=== PATIENT | female | born 2005 | race Two or more races ===

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

== ENCOUNTER 2024-06-01 13:59 | Outpatient (AMB) | payer OTHER, SELFPAY ==
--- NOTE | 2024-06-01 14:03 | A.OFFPC_ITS ---
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 Note: new patient to establish care Wrapper Leaf Inspector Required: No Allergies No Known Allergies Allergy (Verified 06/01/24 14:05) Tobacco use date assessed: 06/01/24 Dental Screening Dental Screen Date: 06/01/24 Did you have a dental visit in the last 12 months?: No Did you have a dental problem in the last 6 months where you did not have access to dental care?: No Was dental information given to patient?: Patient has dentist HPI HPI Comments History of Present Illness Details This is a 18-year-old female with no significant past medical history presenting to establish [facility]. She needs a physical exam. 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 It is a str essful program. 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 She has a step sibling and 3 other siblings. She is originally from [facility]. She moved to [facility] when she was 7 years old. Her only medical concern today is thinning hair over the past 2 years on the sides of her scalp and the crown. No scalp rash or pain associated with this. She does not color treat her dire hair. No treatments attempted at home. Denies drug abuse, alcohol use, smoking. Grandmother and her cousin have thyroid disorder. Patient reports her weight fluctuates. Per chart review she has been between 135 and 144 lb for the past year. Patient says sometimes when she swallows the right side of her throat hurts. She does not have any throat pain presently. She can still swallow everything okay. She received the seasonal influenza vaccine. She is due for a tetanus vaccine in 2024 so she elected to have tdap done today. ROS: Constitutional: +weight fluctuation and sometimes fatigue, denies fever, chills or night sweats. Eyes: No vision changes, blurry vision, double vision, eye pain, eye redness, eye discharge. ENT: No hearing loss, sneezing, congestion, runny nose or sore throat. Respiratory: No shortness of breath, cough or sputum production. Cardiovascular: No chest pain, chest pressure or chest discomfort. No palpitations or pedal edema. Gastrointestinal: No anorexia, nausea, vomiting or diarrhea. No abdominal pain or blood in stool. Genitourinary: No dysuria, hematuria, urinary frequency. Neurologic: No headache, dizziness, syncope, unilateral weakness, ataxia, numbness or tingling in the extremities. Musculoskeletal: No muscle pain, back pain, joint pain or swelling. Hematologic/Lymphatics: No bleeding or bruising. No painful lymph nodes. Skin: No rash or itching. Endocrine: No cold or heat intolerance. No polyuria or polydipsia. Psychiatric: No depression or anxiety. No SI/HI. Physical exam: Constitutional: Alert, in no distress. Head: Normocephalic. thin hair on the temporal and crown areas Eyes: Pupils are equal, round and reactive to light. Extraocular muscles intact. Ear, Nose and Throat: Canals clear. TMs normal. Normal nasal mucosa. No nasal discharge. No oral lesions. Neck: Supple, Full range of motion. No lymphadenopathy. No palpable neck or thyroid masses or enlargement. Respiratory: Clear to auscultation. Cardiovascular: S1 S2 regular. No murmurs. Gastrointestinal: Abdomen soft, non-tender, non-distended. Normal bowel sounds. No palpable masses. Neurologic: No focal neurological deficits. Symmetric patellar reflexes. Moves all extremities spontaneously. Sensation intact bilaterally. Skin: no rash. Musculoskeletal: No gross deformities. Normal range of motion. Extremities: Warm and well perfused. No clubbing, cyanosis or edema. 3+ peripheral pulses bilaterally. Psychiatric: Normal mood and affect [facility] Medical History (Updated 06/01/24 @ 14:20 by DYLAN Talbot) Screening for cardiovascular condition Routine physical examination Hair thinning No pertinent past medical history Surgical History (Updated 06/01/24 @ 14:10 by Melia Flores) No pertinent past surgical history Family History (Updated 06/01/24 @ 14:09 by Melia Flores) Paternal Grandmother Diabetes Sister Asthma Social History (Updated 06/01/24 @ 14:08 by Melia Flores) Household Members: Family Both parents involved: No Caregiver staying overnight: No Housing: House Are you a primary rn long term care to a significant other at home: No Do you presently have visiting nurse or other home services: No 75 years or older and lives alone: No Alcohol intake: never Patient Tobacco Use Status: Never used Tobacco e-Cigarette/Vaping Use: Never Used Second Hand Smoke Exposure: No Current occupational status: employed and student Current occupation: [employer] Cognitive needs: No Hearing needs: No Vision needs: Yes (wear glasses) Questionnaire PHQ-9 Over the last 2 weeks, how often have you been bothered by any of the following problems? 1. Little interest or pleasure in doing things: not at all 2. Feeling down, depressed, or hopeless: not at all 3. Trouble falling or staying asleep, or sleeping too much: several days 4. Feeling tired or having little energy: several days 5. Poor appetite or overeating: not at all 6. Feeling bad about yourself - or that you are a failure or have let yourself or your family down: several days 7. Trouble concentrating on things, such as reading the newspaper or watching television: not at all 8. Moving or speaking so slowly that other people could have noticed. Or the opposite - being so fidgety or restless that you have been moving around a lot more than usual: not at all 9. Thoughts that you would be better off or of hurting yourself in some way: not at all Total score: 3 60006 - PHQ-9 Billing: Yes Source: Developed by Drs. Navneet Do, Carlita Sanchez, Chago Reece and colleagues, with an educational winston from [employer]. Thrive Questionnaire Date Thrive assessed: 06/01/24 I am a: Patient What is your living situation today?: I have a steady place to live Within the past 12 months, did the food you bought not last and you didn't have the money to get more?: Never true Within the past 12 months, did you worry whether your food would run out before you got money to buy more?: Never true Do you have trouble paying for medicines?: No Do you have trouble getting transportation to medical appointments?: No Do you have trouble paying your heating and electricity bill?: No Do you have trouble taking care of your child, family member or friend?: No Do you have trouble with day-to-day activities such as bathing, preparing meals, shopping, managing finances, etc.?: No Are you currently unemployed and looking for a job?: No Are you interested in more education?: I choose not to answer this question Please select the resources that you would like help with: None Currently or been in a relationship where the following occur: No concerns reported THRIVE Score: 0 AUDIT C Alcohol Use Questionnaire (AUDIT-C) 1. How often do you have a drink containing alcohol?: Never 3. How often do you have six or more drinks on one occasion?: Never Total Score: 0 WILMER-7 AMB Questionnaire WILMER-7 Date WILMER - 7 assessed: 06/01/24 Feeling nervous, anxious, or on edge: 0 = Not at all Not being able to stop or control worryin = Several days Worrying too much about different things: 1 = Several days Trouble relaxin = Several days Being so restless that it is hard to sit still: 0 = Not at all Becoming easily annoyed or irritable: 1 = Several days Feeling afraid as if something awful might happen: 1 = Several days Total WILMER-7 score (0-4 normal; 5-9 mild; 10-14 moderate; 15-21 severe): 5 Source: Developed by Drs. Navneet Do, Carlita Sanchez, Chago Reece and colleagues, with an educational winston from [employer]. WILMER-7 Assessment Billing WILMER-7 Assessment Tool: WILMER-7 Assessment 30994 Physical exam (Primary Care) Vital Signs: Last Vital Signs Temp 97.1 F 06/01/24 14:10 Pulse 91 06/01/24 14:10 Resp 12 06/01/24 14:10 BP 112/66 06/01/24 14:10 Pulse Ox 100 06/01/24 14:10 Oxygen Delivery Method Room Air 06/01/24 14:10 BMI result Body Mass Index 22.5 Tobacco/Smoking Status: Tobacco use Status Tobacco use date assessed 06/01/24 06/01/24 14:12 Patient Tobacco Use Status Never used Tobacco 06/01/24 14:12 e-Cigarette/Vaping Use Never Used 06/01/24 14:12 PHQ-9: PHQ-9 Score PHQ-9: Total score 3 06/01/24 14:20 Thrive Assessment: Date of Thrive Assessment Date Thrive assessed 06/01/24 06/01/24 14:12 Currently or been in a relationship where the following occur: No concerns reported Coding Level of Care Code New Pt Prev Care 18-39yr(95193 Diagnoses Routine physical examination Z00.00 Screening for cardiovascular condition Z13.6 Hair thinning L65.9 Additional Codes WILMER-7 Assessment Billing - WILMER-7 Assessment Tool: WILMER-7 Assessment 54008 ([id number]) PHQ-9 - 24459 - PHQ-9 Billing: Yes ([id number]) Assessment & Plan Assessment & Plan (1) Routine physical examination: Code(s): Z00.00 - Encounter for general adult medical examination without abnormal findings Category: Medical (2) Screening for cardiovascular condition: Code(s): Z13.6 - Encounter for screening for cardiovascular disorders Category: Medical (3) Hair thinning: Code(s): L65.9 - Nonscarring hair loss, unspecified Category: Medical Plan Patient is seen today for a routine physical. As part of this visit we reviewed the following issues, which are considered and essential part of preventative health in this age group: - Annual PAP with CIRCUIT RECORDER - starting at age 21 - Blood pressure screening - Cholesterol screening - Osteoporosis prevention including calcium/vitamin D intake, weight bearing exercise & smoking cessation - Nutritional and exercise counseling - Counseling of injury prevention including fire prevention, smoke alarms and seat belt usage - Screening for depression - Prevention of and/or testing for infectious diseases - declined - Education about skin cancer - Recommendations about immunizations - Recommendation of an eye exam - Screening for substance abuse Patient agreeable to lab work for evaluation of thinning hair. Refer to dermatology. Check thyroid ultrasound. Repeat physical in 1 year. Orders: Orders Comprehensive Met. Panel Today L65.9 - Nonscarring hair loss, unspecified, Z00.00 - Encounter for general adult medical examination without abnormal findings, Z13.6 - Encounter for screening for cardiovascular disorders Complete Blood Count Auto Diff Today L65.9 - Nonscarring hair loss, unspecified, Z00.00 - Encounter for general adult medical examination without abnormal findings, Z13.6 - Encounter for screening for cardiovascular disorders Lipid Panel Today E78.5 - Hyperlipidemia, unspecified, L65.9 - Nonscarring hair loss, unspecified, Z00.00 - Encounter for general adult medical examination without abnormal findings, Z13.6 - Encounter for screening for cardiovascular disorders T Spot TB Today L65.9 - Nonscarring hair loss, unspecified, Z00.00 - Encounter for general adult medical examination without abnormal findings, Z13.6 - Encounter for screening for cardiovascular disorders TSH reflex Free T4 Today L65.9 - Nonscarring hair loss, unspecified, Z00.00 - Encounter for general adult medical examination without abnormal findings, Z13.6 - Encounter for screening for cardiovascular disorders Vitamin B12 Today L65.9 - Nonscarring hair loss, unspecified, Z00.00 - Encounter for general adult medical examination without abnormal findings, Z13.6 - Encounter for screening for cardiovascular disorders, Z91.89 - Other specified personal risk factors, not elsewhere classified Vitamin D 25-OH (D2 and D3) Today L65.9 - Nonscarring hair loss, unspecified, M85.80 - Other specified disorders of bone density and structure, unspecified site, Z00.00 - Encounter for general adult medical examination without abnormal findings, Z13.6 - Encounter for screening for cardiovascular disorders Other Ref Test - Misc Today L65.9 - Nonscarring hair loss, unspecified, Z00.00 - Encounter for general adult medical examination without abnormal findings, Z13.6 - Encounter for screening for cardiovascular disorders TDaP Immunization Today Z23 - Encounter for immunization IRON PROFILE Today L65.9 - Nonscarring hair loss, unspecified thyroid Today R13.10 - Dysphagia, unspecified Referrals Dermatology Referral L65.9 - Nonscarring hair loss, unspecified Medications: New Boostrix Tdap (diphth,pertus(acell),tetanus) 0.5 mL IM ONCE 0.5 mL 0RF NS Z23 - Encounter for immunization
[2024-06-01 14:10] VITALS: BP 112/66; PULSE 91; RESP 12; TEMP 36.2; O2SAT 100; BMI 22.5
--- OUTSIDE RECORDS SUMMARY | 2024-06-01 15:05 | XMS_ITS | Encounter Summary ---
Author Organization [facility] Address [address] [place] [id number] Phone Care Team Providers Care Coffee Shop Aide Name Role Phone Unavailable Primary Care Provider Unavailabl e Reason for Visit * Reason Onset Date Comments Release of Records 05/08/2024 Encounter Details Date Type Department Care Team (Late st Contact Info) Description 05/08/[address] [facility] [address] [place] [address] Michelle Lu MD [address] [place] [address] Release of Records Social History Tobacco Use Types Packs/Day Years Used Date Smoking Tobacco: Never Smokeless Tobacco: Never Alcohol Use Standard Drinks/Week Comments Never 0 (1 standard drink = 0.6 oz pur e alcohol) Hunger/Food Answer Date Recorded In the last 12 months, did y ou or your family ever eat less than you felt you should because there wasn't enough money for food? No 12/12/2021 Stable Housing Answer Date Recorded Are you worried that in the next 2 months you may not have stable housing? No 12/12/2021 Transportation Concerns Answer Date Rec orded In the last 12 months, have you or your family ever had to go without healthcare because you didn't have a way to get there? No 12/12/2021 Hazards in Home Answer Date Recorded Think about the place you li ve. Do you have problems with any of the following? Pests (mice or roaches), mold, no/not working smoke detectors, water leaks, no window guards. No 2021 Financing Utilities Answer Date Recorde d In the last 12 months, has t he electric, gas, oil, or water company threatened to shut off your services in your home? No 12/12/2021 Safety at Home Answer Date Recorded Are you or your family worried about feeling saf e in your home? No 12/12/2021 Outside Support Answer Date Recorded Do you feel that you need mo re support from other people or programs to help you care for yourself or your family? No 12/12/2021 Understanding Health Concerns Answer Da te Recorded Do you need help understandi ng your or your child's healthcare needs (diagnosis, medications, plan, etc.)? No 12/12/2021 Financing Health Concerns Answer Date R ecorded In the last 12 months, was t here a time when your child needed to see a doctor or get medications or supplies but could not because of cost? No 12/12/2021 Missing School or Work Answer Date Taiwo rded Did you or your child miss s chool or work because of a health problem that could have been avoided? No 12/12/2021 Comments No Sex and Gender Information Value Date Recorded Sex Assigned at Not on file Legal Sex Female 10:40 AM EST Gender Identity Not on file Sexual Orientation Straight 12/12/2021 12 :35 PM EDT documented as of this encounter Miscellaneous Notes * Telephone Encounter - Amy Pacheco - 05/08/2024 3:38 PM EST Mailed to address. Fax would not go through * Telephone Encounter - Amy Pacheco - 05/08/2024 3:24 PM EST Release received for records to be released to [address] [id number] Records printed and faxed to [phone] documented in this encounter Plan of Treatment Not on file documented as of this encounter Visit Diagnoses Not on filedocumented in this encounter
--- OUTSIDE RECORDS SUMMARY | 2024-06-01 15:05 | XMS_ITS | Clinical Summary ---
Author Organization [facility] Address [address] [place] [address] Phone Care Team Providers Care Line Controller Name Role Phone Unavailable Primary Care Provider Unavailabl e Allergies No known active allergies Medications norgestimate-eth inyl estradiol (Ortho Tri-Cyclen Lo) 0.18/0.215/0.25 MG-25 MCG per tabletIndication s: control counseling Take 1 tablet by mouth daily. 28 tablet 2 12/12/2021 Active Active Problems Problem Noted Date Diagnosed Date Irregular menstrual cycle 04/25/2020 Overview (04/25/2020): 04/25/20 to schedule a control consult to discuss options. Body mass index, pediatric, 85th percentile to less than 95th percentile for age 0104/14/2019 Encounters Date Type Department Care Team Description 05/08/2024 [facility]phone [facility] [address] [address] Michelle Lu MD Release of Records from Last 3 Months Immunizations Immunization Administration Dates Next Due COVID-19 Pfizer, monovalent, 12+ years 2 COVID-19 Pfizer, berto-sucros e, 12+ years 12/12/2021 DTaP 07/24/2008, 7,04/27/2005,03/02,2004 H1N1 09/09/2009,08/09/2009 HPV Vaccine 9 Valent 07/22/2016,01/31/2016,11/14 Hep A, ped/adol 12/04/2014,05/26/2013 Hep B, ped/adol 05/26/2013, 7,04/27/2005,03/02,2004 HiB 01/01/2007, 6,03/02/2005,12/29 IPV 02/07/2018, 9,05/03/2006,04/27,03/02/2005,2004 Influenza 02/07/2018,02/02/2017,01/31/2016 Influenza, injectable, quadr ivalent, preservative free 12/12/2021,04/25/2020,04/14/2019 MMR 07/14/2008,10/26/2005 Meningococcal Conj (Menactra) MCV4P 12/12/2021,0 04/14/2019,05/26/2013 Meningococcal MCV4, Unspecified 05/26/2013 Tdap 12/03/2014,08/31/2013 Varicella 01/31/2016,11/15/2015,08/31/2013 Family History Medical History Relation Name Comments No Known Problems Brother No Known Problems Father No Known Problems Maternal Grandmother No Known Problems Mother No Known Problems Paternal Grandfather No Known Problems Paternal Grandmother No Known Problems Sister Relation Name Status Comments Brother Alive Father Alive Maternal Grandfather Maternal Grandmother Alive Mother Alive Paternal Grandfather Alive Paternal Grandmother Alive Sister Alive Social History Tobacco Use Types Packs/Day Years Used Date Smoking Tobacco: Never Smokeless Tobacco: Never Tobacco Cessation:Counseling Given: Not Answered Alcohol Use Standard Drinks/Week Comments Never 0 [...] Orientation Straight 12/12/2021 12 :35 PM EDT Last Filed Vital Signs Vital Sign Reading Time Taken Comments Blood Pressure 120/62 12/12/2021 10:31 AM EDT Pulse - - Temperature - - Respiratory Rate - - Oxygen Saturation - - Inhaled Oxygen Concentration - - Weight 64.9 kg (143 lb 2 oz) 12/12/2021 10:31 AM EDT Height 165.7 cm (5' 5.25 ) 12/12/2021 10:31 AM E DT Body Mass Index 23.64 12/12/2021 10:31 AM EDT Body Mass Index Percentile 76.37% 12/12/2021 10: 31 AM EDT Growth Chart: CDC (Girls, 2- 20 Years) Plan of Treatment Health Maintenance Due Date Last Done Comments Men B Vaccine (1 of 2 - Standard) 2020 DTaP,Tdap,and Td Vaccines (7 - Td or Tdap) 12/03/2024 12/03/2014, 08/31/2013, 07/24/2008, Additional history exists HIB Vaccines Completed 01/01/2007, 04/12, 03/02/2005, Additional history exists MMR Vaccines Completed 07/14/2008, 10/26/2005 Hepatitis B Vaccines Completed 05/26/2013, 03/03/2007, 04/27/2005, Additional history exists Hepatitis A Vaccines Completed 12/04/2014, 05/26/19 14 Varicella Vaccines Completed 01/31/2016, 0 11/15/2015, 08/31/2013 HPV Vaccines Completed 07/22/2016, 01/11, 11/15/2015 IPV Vaccines Completed 02/07/2018, 07/11, 05/03/2006, Additional history exists Meningococcal Vaccine Completed 12/12/2021 , 04/14/2019, 05/26/2013, Additional history exists COVID-19 Vaccine Completed 12/11/2023, 05/2021, 05/15/2021, Additional history exists Influenza Vaccines Completed 12/11/2023, 0 12/12/2021, 04/25/2020, Additional history exists Pneumococcal Vaccine Aged Out No long er eligible based on patient's age to complete this topic Procedures * Due to [place] [employer] law, this organization might not be sharing sensitive test results. Procedure Name Priority Date/Time Associated Diagnosis Comments CHLAMYDIA AND GONORRHEA, AMPLIFIED Routine 12/12/2021 12:55 PM EDT Encounter for screening examination for sexually transmitted disease from Last 3 Months or Most Recently Relevant to Health Maintenance Results * Due to [facility] law, this organization might not be sharing sensitive test results. * Chlamydia and Gonorrhoea, Amplified (12/12/2021 12:55 PM EDT) Chlamydia Trachomatis, DNA Probe NEGATIVE (NEG) [facility] Comment: No Chlamydia Trachomatis RNA detected in this patient's sample ? (REFERENCE RANGE/NORMAL VALUE: NOT DETECTED) ? Note: This test uses regional education coordinator- mediated amplification method to detect rRNA from C. Trachomatis URINE GC AMP PROBE NEGATIVE (NEG) [facility] Comment: No Neisseria Gonorrhoeae RNA detected in this patient's sample ? (REFERENCE RANGE/NORMAL VALUE: NOT DETECTED) ? NOTE: This test uses regional education coordinator-mediated amplification method to detect rRNA from N.Gonorrhoeae. A negative result does not preclude infection. In the case of a negative urine result, testing of an endocervical(female) or urethral (male) specimen is recommended if there is high clinical suspicion of infection. Due to very high sensitivity of Nucleic Acid Amplification Test, false positive results may occur. Therefore, specimen handling is extremely important. In patients in whom the disease is unlikely, additional sample for testing should be considered after an initial positive result. The performance characteristics of this test have not been evaluated in children. The Aptima Combo2 assay is not intended for the evaluation of suspected sexual abuse or for other medico-legal indications. The ordering provider should assess if the patient had consensual sex without risk of sexual abuse. Consult the [facility] if needed. Contact phone number . Therapeutic failure or success cannot be determined with the Aptima Combo2 assay since nucleic acid may persist following appropriate antimicrobial therapy. The Centers for Disease Control and Prevention (CDC) recommends confirmatory retesting using culture or a different nucleic acid amplification test when positive results occur, if indicated. Testing performed or reported by [facility], [facility], a Service of [facility], [facility] [address] George Mistry MD, Boning Room Worker [facility]# [id number] Urine (Urine) 12/12/2021 12: 55 PM EDT 12/12/2021 2:35 PM EDT Harriet Munson MD LAB MICROBIOLOGY - GENERAL ORD ERABLES Final Result [facility] from Last 3 Months or Most Recently Relevant to Health Maintenance Insurance [facility] NON PCC [facility] ACO NON [facility]
== END 2024-06-01 14:53 | disposition home or self-care (01) ==
PROVIDERS: PCP Physician Assistant Medical; Visit Provider Physician Assistant Medical
DX: Z00.00 Encounter for general adult medical examination without abnormal findings (principal); Z13.6 Encounter for screening for cardiovascular disorders; L65.9 Nonscarring hair loss, unspecified; Z23 Encounter for immunization

== ENCOUNTER → 2024-06-01 13:59 | Outpatient (BNVA) | payer OTHER, SELFPAY | PROVIDERS: PCP Physician Assistant Medical; Visit Provider Physician Assistant Medical | DX: Z00.00 Encounter for general adult medical examination without abnormal findings (principal); Z23 Encounter for immunization; L65.9 Nonscarring hair loss, unspecified | CPT/HCPCS: 90471; 90715; 96127; 99385 ==

== ENCOUNTER 2024-06-01 14:58 | Outpatient (REF) | payer OTHER, SELFPAY ==
--- OUTSIDE RECORDS SUMMARY | 2024-06-01 16:05 | XMS_ITS | Clinical Summary ---
Author Organization [facility] Address [address] [place] [address] Phone Care Team Providers Care Restaurant Assistant Name Role Phone Unavailable Primary Care Provider [...] Team Description 05/08/2024 Telephone [facility] [address] [address] Michelle Lu MD Release [...] complete this topic Procedures * Due to [place] [employer] law, this organization might not be sharing sensitive test results. Procedure Name Priority Date/Time Associated Diagnosis Comments CHLAMYDIA AND GONORRHEA, AMPLIFIED Routine 12/12/2021 12:55 PM EDT Encounter for screening examination for sexually transmitted disease from Last 3 Months or Most Recently Relevant to Health Maintenance Results * Due to [facility] law, this organization might not be sharing sensitive test results. * Chlamydia and Gonorrhoea, Amplified (12/12/2021 12:55 PM EDT) Chlamydia Trachomatis, DNA Probe NEGATIVE (NEG) [facility] Comment: No Chlamydia Trachomatis RNA detected in this patient's sample ? (REFERENCE RANGE/NORMAL VALUE: NOT DETECTED) ? Note: This test uses thermal engineer- mediated amplification method to detect rRNA from C. Trachomatis URINE GC AMP PROBE NEGATIVE (NEG) [facility] Comment: No Neisseria Gonorrhoeae RNA detected in this patient's sample ? (REFERENCE RANGE/NORMAL VALUE: NOT DETECTED) ? NOTE: This test uses thermal engineer-mediated amplification method to detect rRNA from N.Gonorrhoeae. [...] without risk of sexual abuse. Consult the [facility] if needed. Contact phone number . Therapeutic failure or success cannot be determined with the Aptima Combo2 assay since nucleic acid may persist following appropriate antimicrobial therapy. The Centers for Disease Control and Prevention (CDC) recommends confirmatory retesting using culture or a different nucleic acid amplification test when positive results occur, if indicated. Testing performed or reported by [facility], a Service of [facility], [facility] [place] [address] George Mistry MD, Care Attendant [facility]# [id number] Urine (Urine) 12/12/2021 12: 55 PM EDT 12/12/2021 2:35 PM EDT Harriet Munson MD LAB MICROBIOLOGY - GENERAL ORD ERABLES Final Result [facility] from Last 3 Months or Most Recently Relevant to Health Maintenance Insurance [facility] NON PCC [facility] ACO NON [facility]
--- OUTSIDE RECORDS SUMMARY | 2024-06-01 16:05 | XMS_ITS | Encounter Summary ---
Author Organization [facility] Address [address] [place] [id number] Phone Care Team Providers Care Ironer Hand Name Role Phone Unavailable Primary Care Provider Unavailabl e Reason for Visit * Reason Onset Date Comments Release of Records 05/08/2024 Encounter Details Date Type Department Care Team (Late st Contact Info) Description 05/08/2024 Telephone [facility] [address] [place] [address] Michelle Lu MD [address] [place] [address] Release of Records Social History Tobacco Use [...] received for records to be released to [address] [address] Records printed and faxed to [phone] documented in this encounter Plan of Treatment Not on file documented as of this encounter Visit Diagnoses Not on filedocumented in this encounter
[2024-06-01 18:01] LABS: MANUAL DIFF FLAG NO
[2024-06-01 18:17] LABS: Basophils Percent Auto 0.2 % (0-2); Eosinophils Percent Auto 0.5 % (0-4); Hematocrit 36.5 % (37.0-47.0); Hemoglobin 11.9 g/dl (12.0-16.0); Imm Gran Abs Auto 0.02 X10*3/uL (0.00-0.03); Imm Gran Pct Auto 0.3 % (0.0-0.4); Lymphocytes Absolute Auto 0.7 X10*3/uL (1.2-4.9); Lymphocytes Percent Auto 11.2 % (20-40); Mean Corpuscular HGB Conc 32.6 g/dl (31.0-35.0); Mean Corpuscular Hemoglobin 26.9 pg (27.0-33.0); Mean Corpuscular Volume 82.6 fL (80.0-98.0); Mean Platelet Volume 11.1 fL (9.4-12.3); Monocytes Absolute Auto 0.3 X10*3/uL (0.1-1.2); Monocytes Percent Auto 4.6 % (2-11); Neutrophils Percent Auto 83.2 % (45-73); Platelet Count 234 X10*3/uL (160-400); Red Blood Count 4.42 X10*6/uL (4.20-5.50); Red Cell Distribution Width 12.2 % (11.0-16.0); White Blood Count 6.1 X10*3/uL (4.8-10.8)
[2024-06-01 18:40] LABS: Alanine Aminotransferase 11 U/L (0-31); Albumin Level 4.7 g/dL (3.5-5.0); Alkaline Phosphatase 69 U/L (39-117); Anion Gap 11 (12-20); Aspartate Amino Transferase 18 U/L (5-31); Blood Urea Nitrogen 9 mg/dL (9-16); Calcium 9.7 mg/dL (8.4-10.2); Carbon Dioxide 24 mmol/L (22-29); Chloride 107 mmol/L (96-108); Cholesterol 186 mg/dL (<200); Estimated Glomerular Filt Rate > 60; Glucose Random 83 mg/dL (60-115); HDL Cholesterol 51 mg/dL (>40); Iron 70 mcg/dL (30-160); LDL Cholesterol Calculated 115 mg/dL (<100); Percent Iron Saturation 22 % (15-50); Potassium 3.7 mmol/L (3.3-5.1); Sodium 138 mmol/L (135-145); Total Iron Binding Capacity 313 mcg/dL (228-428); Total Protein 8.4 g/dL (6.5-8.0); Triglycerides 103 mg/dL (<150); Unsaturated Iron Binding 243 ug/dL
[2024-06-01 18:49] LABS: TSH reflex Free T4 0.71 uIU/mL (0.32-4.0)
[2024-06-01 19:05] LABS: Vitamin B12 450 pg/mL (200-900)
[2024-06-04 16:09] LABS: TS Negative Control Passed; TS Panel A 2; TS Panel B 2; TS Positive Control Passed; TSpotTB Negative (Negative)
[2024-06-05 13:34] LABS: Vitamin D 25-OH, D2 <4 ng/mL; Vitamin D 25-OH, D3 8 ng/mL; Vitamin D 25-OH, Total 8 ng/mL (30-100)
== END 2024-06-01 14:59 | disposition home or self-care (01) ==
LOC: HO.WFDLDS 14:58
PROVIDERS: Visit Provider Physician Assistant Medical
DX: Z00.00 Encounter for general adult medical examination without abnormal findings (principal); L65.9 Nonscarring hair loss, unspecified; Z13.6 Encounter for screening for cardiovascular disorders; M85.80 Other specified disorders of bone density and structure, unspecified site; E78.5 Hyperlipidemia, unspecified; Z91.89 Other specified personal risk factors, not elsewhere classified
CPT/HCPCS: 36415; 80053; 80061; 82306; 82607; 83540; 84443; 84591; 85025; 86481

== ENCOUNTER 2024-06-22 11:35 | Outpatient (AMB) | payer OTHER, SELFPAY ==
--- NOTE | 2024-06-22 11:46 | A.OFFPC_ITS ---
Vital Signs 06/22/24 11:51 Height 5 ft 5 in Weight 134 lb BMI 22.3 BP 102/59 L Blood Pressure Location Rt brachial Position Sitting Respiration 16 Pulse 80 Pulse Source Pulse Oximeter Temp 97.5 F Temp Source Temporal Artery Scan Pulse Oximetry (%) 99 Oxygen Delivery Method Room Air Intake Visit Reasons: Sore Throat Intake Note: patient here c/o soar throat since yesterday and cold getting worse Middleware Consultant Required: No Is last menstrual period known: Yes Last menstrual period: 06/03/24 Post menopausal: No Patient : No Allergies No Known Allergies Allergy (Verified 06/22/24 11:50) Medication List - Last Reconciled 06/22/24 by DYLAN Talbot cholecalciferol (vitamin D3) 1,250 mcg PO QWEEK 12 weeks Tobacco use date assessed: 06/22/24 Dental Screening Dental Screen Date: 06/22/24 Did you have a dental visit in the last 12 months?: Yes Did you have a dental problem in the last 6 months where you did not have access to dental care?: No Was dental information given to patient?: Patient has dentist HPI HPI Comments History of Present Illness Details 18-year-old female with a past medical h istory of abnormal CBC, hair thinning and vitamin-D deficiency presents for a sick visit. We contacted her to discuss lab results which showed vitamin-D deficiency. This test was ordered due to hair thinning. She started the supplement. Patient's total white blood cell count and platelet count are normal. She was mildly anemic with an H and H of 11.9 and 36.5. Red blood cell count normal. MCH mildly decreased at 26.9. Lymphocyte count was low at 0.7. Patient reports that she was sick a couple of weeks before the labs were done with a viral illness. When she was called she reported a sore throat so she was asked to come in for evaluation. She says her symptoms started yesterday, but her throat is not sore today. It just feels scratchy. No fevers or chills. Endorses some body aches and nasal congestion and a nonproductive cough. No vomiting, abdominal pain, diarrhea. Patient also mentions some difficulty with sleep. Her cousins tell her that she snores heavily. She only gets about 5 hours of sleep per night. Feels tired during the day. Reports that she wakes up frequently during the night though she is able to fall asleep and fall back to sleep. Patient frequently gets migraine headaches. These occur 3 times per week. They are treated with [id number] pain relievers like ibuprofen and Tylenol which helped. Denies gasping arousals, vision changes, seizures, tremors or memory loss. Endorses light sensitivity associated with headache. ROS: Constitutional: No unexplained weight loss, fever, chills. +fatigue Eyes: No vision changes, blurry vision, double vision, eye pain, eye redness, eye discharge. ENT: No hearing loss, ear pain, sinus pain. See HPI Respiratory: No shortness of breath, wheezing or hemoptysis. See HPI Cardiovascular: No chest pain Gastrointestinal: No anorexia, nausea, vomiting or diarrhea. No abdominal pain or blood in stool. Genitourinary: No dysuria, hematuria, urinary frequency. Neurologic: No dizziness, syncope, unilateral weakness, ataxia, numbness or tingling in the extremities. Musculoskeletal: +body aches Hematologic/Lymphatics: No bleeding or bruising. No painful lymph nodes. Skin: No rash or itching. Endocrine: No cold or heat intolerance. No polyuria or polydipsia. Physical exam: Constitutional: Alert, in no distress. Head: Normocephalic. Eyes: Pupils are equal, round and reactive to light. Ear, Nose and Throat: Canals clear. TMs normal. Nasal mucosa erythematous. Sinuses nontender. No nasal discharge. Tonsils 1+. No oropharyngeal erythema or exudates. Neck: Supple, Full range of motion. No lymphadenopathy. No palpable thyroid masses. Respiratory: Clear to auscultation. Cardiovascular: S1 S2 regular. No murmurs. Gastrointestinal: Abdomen soft, non-tender, non-distended. Normal bowel sounds. No palpable masses. Neurologic: No focal neurological deficits Skin: No rashes Extremities: Warm and well perfused. No clubbing, cyanosis or edema. Psychiatric: Normal mood and affect [facility] Medical History (Updated 06/22/24 @ 13:23 by DYLAN Talbot) Migraines URI (upper respiratory infection) Snoring Non-restorative sleep Daytime somnolence Abnormal CBC Vitamin D deficiency Screening for cardiovascular condition Routine physical examination Hair thinning No pertinent past medical history Surgical History (Updated 06/01/24 @ 14:10 by Melia Flores MA) No pertinent past surgical history Family History (Updated 06/01/24 @ 14:09 by Melia Flores MA) Paternal Grandmother Diabetes Sister Asthma Social History (Updated 06/01/24 @ 14:08 by Melai Flores MA) Household Members: Family Housing: House Are you a primary home care manager to a significant other at home: No Do you presently have visiting nurse or other home services: No Alcohol intake: never Patient Tobacco Use Status: Never used Tobacco e-Cigarette/Vaping Use: Never Used Second Hand Smoke Exposure: No Current occupational status: employed and student Current occupation: [employer] Cognitive needs: No Hearing needs: No Vision needs: Yes (wear glasses) Female Reproductive History Menstrual Date of last menstrual period: 06/03/24 Questionnaire Thrive Questionnaire Date Thrive assessed: 06/01/24 I am a: Patient What is your living situation today?: I have a steady place to live Within the past 12 months, did the food you bought not last and you didn't have the money to get more?: Never true Within the past 12 months, did you worry whether your food would run out before you got money to buy more?: Never true Do you have trouble paying for medicines?: No Do you have trouble getting transportation to medical appointments?: No Do you have trouble paying your heating and electricity bill?: No Do you have trouble taking care of your child, family member or friend?: No Do you have trouble with day-to-day activities such as bathing, preparing meals, shopping, managing finances, etc.?: No Are you currently unemployed and looking for a job?: No Are you interested in more education?: I choose not to answer this question Please select the resources that you would like help with: None Currently or been in a relationship where the following occur: No concerns reported THRIVE Score: 0 WILMER-7 AMB Questionnaire WILMER-7 Date WILMER - 7 assessed: 06/01/24 Source: Developed by Drs. Navneet Do, Carlita Sanchez, Chago Reece and colleagues, with an educational winston from [employer]. Physical exam (Primary Care) Vital Signs: Last Vital Signs Temp 97.5 F 06/22/24 11:51 Pulse 80 06/22/24 11:51 Resp 16 06/22/24 11:51 BP 102/59 L 06/22/24 11:51 Pulse Ox 99 06/22/24 11:51 Oxygen Delivery Method Room Air 06/22/24 11:51 BMI result Body Mass Index 22.3 Tobacco/Smoking Status: Tobacco use Status Tobacco use date assessed 06/22/24 06/22/24 11:54 Patient Tobacco Use Status Never used Tobacco 06/22/24 11:49 e-Cigarette/Vaping Use Never Used 06/22/24 11:49 Thrive Assessment: Date of Thrive Assessment Date Thrive assessed 06/01/24 06/22/24 11:49 Currently or been in a relationship where the following occur: No concerns reported Coding Level of Care Code Est Pt Level 4 (98849) Complex EM visit Add On G2211 Diagnoses Daytime somnolence R40.0 Non-restorative sleep G47.8 Snoring R06.83 Abnormal CBC R79.89 Vitamin D deficiency E55.9 URI (upper respiratory infection) J06.9 Migraines G43.909 Assessment & Plan Assessment & Plan (1) Daytime somnolence: Code(s): R40.0 - Somnolence Category: Medical Plan: She will proceed with a sleep study. (2) Non-restorative sleep: Code(s): G47.8 - Other sleep disorders Category: Medical (3) Snoring: Code(s): R06.83 - Snoring Category: Medical (4) Abnormal CBC: Code(s): R79.89 - Other specified abnormal findings of blood chemistry Category: Medical Plan: Repeat CBC today. (5) Vitamin D deficiency: Code(s): E55.9 - Vitamin D deficiency, unspecified Category: Medical Plan: Continue supplementation. Recheck 8 weeks. She has a follow up scheduled with me after that. (6) URI (upper respiratory infection): Code(s): J06.9 - Acute upper respiratory infection, unspecified Category: Medical Plan: Rapid strep is negative. Testing for COVID/flu/influenza sent to the lab. Recommended rest, cool mist humidifier, Vicks, Tylenol and Advil as needed for symptom relief. Increase fluids. Warning signs warranting further evaluation reviewed. (7) Migraines: Code(s): G43.909 - Migraine, unspecified, not intractable, without status migrainosus Category: Medical Plan Treat underlying vitamin-D deficiency. Evaluation for sleep apnea pending. Typically for improvement of migraine headache or headache it takes a m ultifactorial approach including modifying risk factors and avoiding triggers. I would limit the use of [id number]-uzy-[id number] headache medications to no more than 4 to 5 doses per week in any combination to avoid rebound effect. I continued to endorse proper sleep habit, hydration with water, not skipping meals, decreasing caffeine, working on stressors, increasing physical activity and exercise and weight loss as appropriate. All these things over time can help decrease headache burden and frequency. Re-evaluate at follow up appointment. Orders: Orders SARS-CoV2/FLU/RSV Today R09.89 - Other specified symptoms and signs involving the circulatory and respiratory systems RT home sleep study Today G47.8 - Other sleep disorders, R06.83 - Snoring, R40.0 - Somnolence Complete Blood Count Auto Diff Today R79.89 - Other specified abnormal findings of blood chemistry
[2024-06-22 11:51] VITALS: BP 102/59; PULSE 80; RESP 16; TEMP 36.4; O2SAT 99; BMI 22.3
--- OUTSIDE RECORDS SUMMARY | 2024-06-22 15:02 | XMS_ITS | Clinical Summary ---
Author Organization [facility] Address [address] [place] [address] Phone Care Team Providers Care Electroplater Automatic Name Role Phone Unavailable Primary Care Provider [...] Team Description 05/08/2024 Telephone [facility] [address] [address] Michelle Lu MD Release of [...] complete this topic Procedures * Due to [place] [employer] law, this organization might not be sharing sensitive test results. Procedure Name Priority Date/Time Associated Diagnosis Comments CHLAMYDIA AND GONORRHEA, AMPLIFIED Routine 12/12/2021 12:55 PM EDT Encounter for screening examination for sexually transmitted disease from Last 3 Months or Most Recently Relevant to Health Maintenance Results * Due to [facility] law, this organization might not be sharing sensitive test results. * Chlamydia and Gonorrhoea, Amplified (12/12/2021 12:55 PM EDT) Chlamydia Trachomatis, DNA Probe NEGATIVE (NEG) [facility] Comment: No Chlamydia Trachomatis RNA detected in this patient's sample ? (REFERENCE RANGE/NORMAL VALUE: NOT DETECTED) ? Note: This test uses data services developer- mediated amplification method to detect rRNA from C. Trachomatis URINE GC AMP PROBE NEGATIVE (NEG) [facility] Comment: No Neisseria Gonorrhoeae RNA detected in this patient's sample ? (REFERENCE RANGE/NORMAL VALUE: NOT DETECTED) ? NOTE: This test uses data services developer-mediated amplification method to detect rRNA from N.Gonorrhoeae. [...] without risk of sexual abuse. Consult the [facility] if needed. Contact phone number . Therapeutic failure or success cannot be determined with the Aptima Combo2 assay since nucleic acid may persist following appropriate antimicrobial therapy. The Centers for Disease Control and Prevention (CDC) recommends confirmatory retesting using culture or a different nucleic acid amplification test when positive results occur, if indicated. Testing performed or reported by [facility], a Service of [facility], [facility] [place] [address] George Mistry MD, Soil Chemist [facility]# [id number] Urine (Urine) 12/12/2021 12: 55 PM EDT 12/12/2021 2:35 PM EDT Harriet Munson MD LAB MICROBIOLOGY - GENERAL ORD ERABLES Final Result [facility] from Last 3 Months or Most Recently Relevant to Health Maintenance Insurance [facility] NON PCC [facility] ACO NON [facility]
== END 2024-06-22 13:20 | disposition home or self-care (01) ==
LOC: HO.HMCFM 11:35
PROVIDERS: PCP Physician Assistant Medical; Visit Provider Physician Assistant Medical
DX: R40.0 Somnolence (principal); G47.8 Other sleep disorders; R06.83 Snoring; R79.89 Other specified abnormal findings of blood chemistry; E55.9 Vitamin D deficiency, unspecified; J06.9 Acute upper respiratory infection, unspecified; G43.909 Migraine, unspecified, not intractable, without status migrainosus

== ENCOUNTER → 2024-06-22 11:35 | Outpatient (BNVA) | payer OTHER, SELFPAY | PROVIDERS: PCP Physician Assistant Medical; Visit Provider Physician Assistant Medical ==

== ENCOUNTER 2024-06-22 12:18 | Outpatient (REF) | payer OTHER, SELFPAY ==
[2024-06-22 14:27] LABS: MANUAL DIFF FLAG NO
[2024-06-22 14:31] LABS: Basophils Percent Auto 0.3 % (0-2); Eosinophils Absolute Auto 0.2 X10*3/uL (0.0-0.4); Eosinophils Percent Auto 2.3 % (0-4); Hematocrit 33.6 % (37.0-47.0); Hemoglobin 11.3 g/dl (12.0-16.0); Imm Gran Abs Auto 0.01 X10*3/uL (0.00-0.03); Imm Gran Pct Auto 0.1 % (0.0-0.4); Lymphocytes Absolute Auto 1.1 X10*3/uL (1.2-4.9); Lymphocytes Percent Auto 14.2 % (20-40); Mean Corpuscular HGB Conc 33.6 g/dl (31.0-35.0); Mean Corpuscular Hemoglobin 27.6 pg (27.0-33.0); Mean Corpuscular Volume 82.2 fL (80.0-98.0); Mean Platelet Volume 11.2 fL (9.4-12.3); Monocytes Absolute Auto 0.6 X10*3/uL (0.1-1.2); Monocytes Percent Auto 7.6 % (2-11); Neutrophils Absolute Auto 5.6 x10*3/uL (2.0-8.3); Neutrophils Percent Auto 75.5 % (45-73); Platelet Count 252 X10*3/uL (160-400); Red Blood Count 4.09 X10*6/uL (4.20-5.50); Red Cell Distribution Width 12.6 % (11.0-16.0); White Blood Count 7.4 X10*3/uL (4.8-10.8)
[2024-06-22 15:15] LABS: Influenza A PCR NEGATIVE (Negative); Influenza B PCR NEGATIVE (Negative); Resp Syncy Virus RNA Qual PCR NEGATIVE (Negative); SARS COV2 PCR INHOUSE NEGATIVE (Negative)
--- OUTSIDE RECORDS SUMMARY | 2024-06-22 15:40 | XMS_ITS | Clinical Summary ---
Author Organization [facility] Address [address] [place] [address] Phone Care Team Providers Care Audiology Assistant Name Role Phone Unavailable Primary Care [...] Team Description 05/08/2024 [facility]phone [facility] [address] [address] Michelle Lu MD Release of [...] complete this topic Procedures * Due to [place] [employer] law, this organization might not be sharing sensitive test results. Procedure Name Priority Date/Time Associated Diagnosis Comments CHLAMYDIA AND GONORRHEA, AMPLIFIED Routine 12/12/2021 12:55 PM EDT Encounter for screening examination for sexually transmitted disease from Last 3 Months or Most Recently Relevant to Health Maintenance Results * Due to [facility] law, this organization might not be sharing sensitive test results. * Chlamydia and Gonorrhoea, Amplified (12/12/2021 12:55 PM EDT) Chlamydia Trachomatis, DNA Probe NEGATIVE (NEG) [facility] Comment: No Chlamydia Trachomatis RNA detected in this patient's sample ? (REFERENCE RANGE/NORMAL VALUE: NOT DETECTED) ? Note: This test uses developmental mathematics professor- mediated amplification method to detect rRNA from C. Trachomatis URINE GC AMP PROBE NEGATIVE (NEG) [facility] Comment: No Neisseria Gonorrhoeae RNA detected in this patient's sample ? (REFERENCE RANGE/NORMAL VALUE: NOT DETECTED) ? NOTE: This test uses developmental mathematics professor-mediated amplification method to detect rRNA from N.Gonorrhoeae. [...] without risk of sexual abuse. Consult the [facility] if needed. Contact phone number . Therapeutic failure or success cannot be determined with the Aptima Combo2 assay since nucleic acid may persist following appropriate antimicrobial therapy. The Centers for Disease Control and Prevention (CDC) recommends confirmatory retesting using culture or a different nucleic acid amplification test when positive results occur, if indicated. Testing performed or reported by [facility], a Service of [facility], [facility] [place] [address] George Mistry MD, Saw Maker [facility]# [id number] Urine (Urine) 12/12/2021 12: 55 PM EDT 12/12/2021 2:35 PM EDT Harriet Munson MD LAB MICROBIOLOGY - GENERAL ORD ERABLES Final Result [facility] from Last 3 Months or Most Recently Relevant to Health Maintenance Insurance [facility] NON PCC [facility] ACO NON [facility]
== END 2024-06-22 12:19 | disposition home or self-care (01) ==
LOC: HO.WFDLDS 12:18
PROVIDERS: Visit Provider Physician Assistant Medical
DX: R40.0 Somnolence (principal); G47.8 Other sleep disorders; R06.83 Snoring; R79.89 Other specified abnormal findings of blood chemistry; E55.9 Vitamin D deficiency, unspecified; J06.9 Acute upper respiratory infection, unspecified; G43.909 Migraine, unspecified, not intractable, without status migrainosus
CPT/HCPCS: 0241U; 36415; 85025; 99212

== ENCOUNTER 2024-07-24 16:31 | Outpatient (REF) | payer OTHER, SELFPAY ==
--- NOTE | ~2024-07-24 | US_ITS ---
EXAMINATION: US THYROID HISTORY: R13.10 - Dysphagia, unspecified TECHNIQUE: Real-time grayscale ultrasound imaging was performed and images were reviewed. COMPARISON: There are no prior studies for comparison. FINDINGS: SIZE: The right thyroid lobe measures 1.1 x 1.3 x 1.4 cm. The left thyroid lobe measures 3.9 x 0.9 x 1.3 cm. The isthmus measures 3 mm. FLOW: Flow to the gland is normal. ECHOGENICITY: The echotexture of the gland is homogeneous. NODULES: No discrete nodules are identified. US/US thyroid IMPRESSION: Unremarkable thyroid ultrasound. ACR TI-RADS Guidelines TR1 (0 points): Benign, No follow-up or biopsy required TR2 (2 points): Not Suspicious, No biopsy or follow up indicated TR3 (3 points): Mildly Suspicious, FNA if >= 2.5 cm, Follow if >= 1.5 cm TR4 (4-6 points): Moderately Suspicious, FNA if >= 1.5 cm, Follow if >= 1.0 cm TR5 (>=7 points): Highly Suspicious, FNA if >= 1.0 cm, Follow if >= 0.5 cm Electronically signed by: Navneet Gunn MD 07/25/2024 07:43 AM EDT
--- OUTSIDE RECORDS SUMMARY | 2024-07-24 18:28 | XMS_ITS | Clinical Summary ---
Author Organization [facility] Address [address] [place] [address] Phone Care Team Providers Care Foundation Director Name Role Phone Unavailable Primary Care Provider [...] Team Description 05/08/2024 Telephone [facility] [address] [address] Michelle Lu MD Release of [...] 12/12/2021 Missing School or Work Answer Date Atiwo rded Did you or your child miss [...] complete this topic Procedures * Due to [place] [employer] law, this organization might not be sharing sensitive test results. Procedure Name Priority Date/Time Associated Diagnosis Comments CHLAMYDIA AND GONORRHEA, AMPLIFIED Routine 12/12/2021 12:55 PM EDT Encounter for screening examination for sexually transmitted disease from Last 3 Months or Most Recently Relevant to Health Maintenance Results * Due to [facility] law, this organization might not be sharing sensitive test results. * Chlamydia and Gonorrhoea, Amplified (12/12/2021 12:55 PM EDT) Chlamydia Trachomatis, DNA Probe NEGATIVE (NEG) [facility] Comment: No Chlamydia Trachomatis RNA detected in this patient's sample ? (REFERENCE RANGE/NORMAL VALUE: NOT DETECTED) ? Note: This test uses wheel loader operator- mediated amplification method to detect rRNA from C. Trachomatis URINE GC AMP PROBE NEGATIVE (NEG) [facility] Comment: No Neisseria Gonorrhoeae RNA detected in this patient's sample ? (REFERENCE RANGE/NORMAL VALUE: NOT DETECTED) ? NOTE: This test uses wheel loader operator-mediated amplification method to detect rRNA from N.Gonorrhoeae. [...] without risk of sexual abuse. Consult the [facility] if needed. Contact phone number . Therapeutic failure or success cannot be determined with the Aptima Combo2 assay since nucleic acid may persist following appropriate antimicrobial therapy. The Centers for Disease Control and Prevention (CDC) recommends confirmatory retesting using culture or a different nucleic acid amplification test when positive results occur, if indicated. Testing performed or reported by [facility], a Service of [facility], [facility] [place] [address] George Mistry MD, Recycling Operations Manager [facility]# [id number] Urine (Urine) 12/12/2021 12: 55 PM EDT 12/12/2021 2:35 PM EDT Harriet Munson MD LAB MICROBIOLOGY - GENERAL ORD ERABLES Final Result [facility] from Last 3 Months or Most Recently Relevant to Health Maintenance Insurance [facility] NON PCC [facility] NON [facility]
== END 2024-07-24 16:32 | disposition home or self-care (01) ==
LOC: HO.US 16:31
PROVIDERS: PCP Physician Assistant Medical; Visit Provider Physician Assistant Medical
DX: R13.10 Dysphagia, unspecified (principal)
CPT/HCPCS: 76536

== ENCOUNTER → 2024-07-24 16:32 | Outpatient (BNV) | payer OTHER, SELFPAY | PROVIDERS: PCP Physician Assistant Medical; Visit Provider Radiology Diagnostic Radiology | DX: R13.10 Dysphagia, unspecified (principal) | CPT/HCPCS: 76536 ==

== ENCOUNTER 2024-08-21 12:58 | Outpatient (REF) | payer OTHER, SELFPAY ==
--- OUTSIDE RECORDS SUMMARY | 2024-08-21 13:18 | XMS_ITS | Clinical Summary ---
Author Organization [facility] Address [address] [place] [address] Phone Care Team Providers Care Information Systems Analyst Name Role Phone Unavailable Primary Care Provider [...] less than 95th percentile for age 0104/14/2019 Immunizations Immunization Administration Dates Next Due COVID-19 [...] complete this topic Procedures * Due to [facility] law, this organization might not be sharing sensitive test results. Procedure Name Priority Date/Time Associated Diagnosis Comments CHLAMYDIA AND GONORRHEA, AMPLIFIED Routine 12/12/2021 12:55 PM EDT Encounter for screening examination for sexually transmitted disease from Last 3 Months or Most Recently Relevant to Health Maintenance Results * Due to [place] [employer] law, this organization might not be sharing sensitive test results. * Chlamydia and Gonorrhoea, Amplified (12/12/2021 12:55 PM EDT) Chlamydia Trachomatis, DNA Probe NEGATIVE (NEG) [facility] Comment: No Chlamydia Trachomatis RNA detected in this patient's sample ? (REFERENCE RANGE/NORMAL VALUE: NOT DETECTED) ? Note: This test uses electron microprobe operator- mediated amplification method to detect rRNA from C. Trachomatis URINE GC AMP PROBE NEGATIVE (NEG) [facility] Comment: No Neisseria Gonorrhoeae RNA detected in this patient's sample ? (REFERENCE RANGE/NORMAL VALUE: NOT DETECTED) ? NOTE: This test uses electron microprobe operator-mediated amplification method to detect rRNA from [...] without risk of sexual abuse. Consult the [facility] if needed. Contact phone number . Therapeutic failure or success cannot be determined with the Aptima Combo2 assay since nucleic acid may persist following appropriate antimicrobial therapy. The Centers for Disease Control and Prevention (CDC) recommends confirmatory retesting using culture or a different nucleic acid amplification test when positive results occur, if indicated. Testing performed or reported by [facility], a Service of [facility], [address] [place] [address] [place] [address] George Mistry MD, Publicity Agent [facility]# [id number] Urine (Urine) 12/12/2021 12: 55 PM EDT 12/12/2021 2:35 PM EDT us Harriet Munson MD LAB MICROBIOLOGY - GENERAL ORD ERABLES Final Result [facility] from Last 3 Months or Most Recently Relevant to Health Maintenance Insurance NON PCC [facility] ACO NON PCC
[2024-08-21 14:18] LABS: MANUAL DIFF FLAG NO
[2024-08-21 14:30] LABS: Basophils Percent Auto 0.2 % (0-2); Eosinophils Absolute Auto 0.1 X10*3/uL (0.0-0.4); Eosinophils Percent Auto 1.2 % (0-4); Hematocrit 37.9 % (37.0-47.0); Imm Gran Abs Auto 0.02 X10*3/uL (0.00-0.03); Imm Gran Pct Auto 0.3 % (0.0-0.4); Lymphocytes Percent Auto 32.1 % (20-40); Mean Corpuscular HGB Conc 31.7 g/dl (31.0-35.0); Mean Corpuscular Hemoglobin 26.5 pg (27.0-33.0); Mean Corpuscular Volume 83.7 fL (80.0-98.0); Mean Platelet Volume 11.7 fL (9.4-12.3); Monocytes Absolute Auto 0.3 X10*3/uL (0.1-1.2); Monocytes Percent Auto 4.4 % (2-11); Neutrophils Absolute Auto 3.8 x10*3/uL (2.0-8.3); Neutrophils Percent Auto 61.8 % (45-73); Platelet Count 240 X10*3/uL (160-400); Red Blood Count 4.53 X10*6/uL (4.20-5.50); Red Cell Distribution Width 11.9 % (11.0-16.0); White Blood Count 6.1 X10*3/uL (4.8-10.8)
[2024-08-21 15:03] LABS: Iron 112 mcg/dL (30-160); Percent Iron Saturation 32 % (15-50); Total Iron Binding Capacity 347 mcg/dL (228-428); Unsaturated Iron Binding 235 ug/dL
[2024-08-21 15:11] LABS: Ferritin 23 ng/mL (10-122)
[2024-08-24 16:32] LABS: Vitamin D 25-OH, D2 <4 ng/mL; Vitamin D 25-OH, D3 56 ng/mL; Vitamin D 25-OH, Total 56 ng/mL (30-100)
== END 2024-08-21 12:59 | disposition home or self-care (01) ==
LOC: HO.WFDLDS 12:58
PROVIDERS: Visit Provider Physician Assistant Medical
DX: E55.9 Vitamin D deficiency, unspecified (principal); R79.89 Other specified abnormal findings of blood chemistry; M85.80 Other specified disorders of bone density and structure, unspecified site
CPT/HCPCS: 36415; 82306; 82728; 83540; 85025

== ENCOUNTER 2024-08-28 15:10 | Outpatient (AMB) | payer OTHER, SELFPAY ==
--- NOTE | 2024-08-28 15:14 | A.OFFPC_ITS ---
Vital Signs 08/28/24 15:20 Height 5 ft 5 in Weight 137 lb 6 oz BMI 22.9 BP 100/58 L Blood Pressure Location Rt brachial Position Sitting Respiration 15 Pulse 82 Pulse Source Pulse Oximeter Temp 97.9 F Temp Source Temporal Artery Scan Pulse Oximetry (%) 98 Oxygen Delivery Method Room Air Intake Visit Reasons: Hair thinning, Vit D deficiency, review labs Intake Note: Feroz presents in the office today for thinning hair, Vitamin D Def and to review her most recent lab results. Allergies No Known Allergies Allergy (Verified 08/28/24 15:17) Tobacco use date assessed: 08/28/24 Dental Screening Dental Screen Date: 08/28/24 Did you have a dental visit in the last 12 months?: No Did you have a dental problem in the last 6 months where you did not have access to dental care?: No Was dental information given to patient?: Patient has dentist HPI HPI Comments History of Present Illness Details This is a 18-year-old female with a past medical history of migraines and vitamin-D deficiency presenting for follow up. Patient presented with concern of hair thinning. Lab evaluation demonstrated vitamin-D deficiency with a level of 8 on 06/01/2024. She was treated with vitamin D3 32282 IU weekly. Vitamin-D level normalized 08/21/2024 at 56. She was referred to Dermatology for hair thinning. They are treating with Minoxidil topically every other day. Patient also reported non restorative sleep, daytime fatigue and snoring. Sleep study was ordered 06/22/2024. She missed the appointment, and she will call to reschedule it. She still has these symptoms though she admits sleep is little better since treating vitamin-D deficiency. She still gets migraines. Patient reports shortness of breath with exertion over the past 3 months. It does not happen all the time. She will notice it when she is going upstairs or walking quickly. She reports random episodes of dizziness that occur sometimes when she is sitting down. Her mother has asthma, and her father has allergies. Patient has nasal discharge and irritation sometimes. She gets migraines. There is no family history of cardiovascular disease. Denies history of asthma. Denies chest pain. Denies palpitations, edema, cough, wheezing. Patient had a CBC in June of 2024 which showed mild anemia and mild lymphopenia. This resolved when she repeated it on 08/21/2024. Iron normal. She has been sick a couple of weeks before the labs were done with a viral illness. ROS: Constitutional: No unexplained weight loss, fever, chills or night sweats. Eyes: No vision changes, blurry vision, double vision, eye pain, eye redness, eye discharge. ENT: No hearing loss, ear pain, sinus pain, sore throat. + sometimes nasal itching and irritation Respiratory: No cough, wheezing, sputum production or hemoptysis. +BARNES Cardiovascular: No chest pain, chest pressure or chest discomfort. No palpitations or pedal edema. Neurologic: No dizziness, syncope, unilateral weakness, ataxia, numbness or tingling in the extremities. Hematologic/Lymphatics: No bleeding or bruising. Endocrine: No cold or heat intolerance. No polyuria or polydipsia. Psychiatric: No depression or anxiety. No SI/HI. Physical exam: Constitutional: Alert, in no distress. Ear, Nose and Throat: Canals clear. TMs normal. Nasal mucosa mildly erythematous. Sinuses nontender.. No nasal discharge. No oral lesions. Neck: Supple, Full range of motion. No lymphadenopathy. No palpable thyroid masses. Respiratory: Clear to auscultation. Cardiovascular: S1 S2 regular. No murmurs. No carotid bruits. Neurologic: No focal neurological deficits. Extremities: Warm and well perfused. No clubbing, cyanosis or edema. 3+ peripheral pulses bilaterally. [facility] Medical History (Updated 08/28/24 @ 15:34 by DYLAN Talbot) BARNES (dyspnea on exertion) Migraines URI (upper respiratory infection) Snoring Non-restorative sleep Daytime somnolence Abnormal CBC Vitamin D deficiency Screening for cardiovascular condition Routine physical examination Hair thinning No pertinent past medical history Surgical History (Updated 06/01/24 @ 14:10 by Melia Flores MA) No pertinent past surgical history Family History Paternal Grandmother Diabetes Sister Asthma Social History (Updated 08/28/24 @ 15:18 by Katherine Castle MA) Household Members: Family Both parents involved: No Caregiver staying overnight: No Housing: House Are you a primary childcare administrator to a significant other at home: No Do you presently have visiting nurse or other home services: No 75 years or older and lives alone: No Alcohol intake: never Patient Tobacco Use Status: Never used Tobacco e-Cigarette/Vaping Use: Never Used Second Hand Smoke Exposure: No service: No Current occupational status: employed and student Current occupation: [employer] Cognitive needs: No Hearing needs: No Vision needs: Yes (wear glasses) Questionnaire PHQ-9 Over the last 2 weeks, how often have you been bothered by any of the following problems? 1. Little interest or pleasure in doing things: not at all 2. Feeling down, depressed, or hopeless: not at all 3. Trouble falling or staying asleep, or sleeping too much: not at all 4. Feeling tired or having little energy: more than half the days 5. Poor appetite or overeating: several days 6. Feeling bad about yourself - or that you are a failure or have let yourself or your family down: not at all 7. Trouble concentrating on things, such as reading the newspaper or watching television: not at all 8. Moving or speaking so slowly that other people could have noticed. Or the opposite - being so fidgety or restless that you have been moving around a lot more than usual: not at all 9. Thoughts that you would be better off or of hurting yourself in some way: not at all Total score: 3 Depression Screening Interpretation: Negative Depression Screening Done: Yes 99300 - PHQ-9 Billing: Yes Source: Developed by Drs. Navneet Do, Carlita Sanchez, Chago Reece and colleagues, with an educational winston from [employer]. Thrive Questionnaire Date Thrive assessed: 08/28/24 I am a: Patient What is your living situation today?: I have a steady place to live Within the past 12 months, did the food you bought not last and you didn't have the money to get more?: Never true Within the past 12 months, did you worry whether your food would run out before you got money to buy more?: Never true Do you have trouble paying for medicines?: No Do you have trouble getting transportation to medical appointments?: No Do you have trouble paying your heating and electricity bill?: No Do you have trouble taking care of your child, family member or friend?: No Do you have trouble with day-to-day activities such as bathing, preparing meals, shopping, managing finances, etc.?: No Are you currently unemployed and looking for a job?: No Are you interested in more education?: I choose not to answer this question Please select the resources that you would like help with: None Currently or been in a relationship where the following occur: No concerns reported THRIVE Score: 0 AUDIT C Alcohol Use Questionnaire (AUDIT-C) 1. How often do you have a drink containing alcohol?: Never Total Score: 0 Score Reviewed/Action Taken: No WILMER-7 AMB Questionnaire WILMER-7 Date WILMER - 7 assessed: 08/28/24 Feeling nervous, anxious, or on edge: 0 = Not at all Not being able to stop or control worryin = More than half the days Worrying too much about different things: 2 = More than half the days Trouble relaxin = Not at all Being so restless that it is hard to sit still: 1 = Several days Becoming easily annoyed or irritable: 0 = Not at all Feeling afraid as if something awful might happen: 0 = Not at all Total WILMER-7 score (0-4 normal; 5-9 mild; 10-14 moderate; 15-21 severe): 5 Source: Developed by Drs. Navneet Do, Carlita Sanchez, Chago Reece and colleagues, with an educational winston from [employer]. WILMER-7 Assessment Billing WILMER-7 Assessment Tool: WILMER-7 Assessment 49100 Physical exam (Primary Care) Tobacco/Smoking Status: Tobacco use Status Tobacco use date assessed 08/28/24 08/28/24 15:18 Patient Tobacco Use Status Never used Tobacco 08/28/24 15:18 e-Cigarette/Vaping Use Never Used 08/28/24 15:18 Depression Screening Interpretation: Negative Thrive Assessment: Date of Thrive Assessment Date Thrive assessed 08/28/24 08/28/24 15:18 Currently or been in a relationship where the following occur: No concerns reported Office Procedures EKG Details: EKG shows normal sinus rhythm and ventricular rate of 72 beats per minute. 13284-[id number], Complete Coding Level of Care Code Est Pt Level 4 (38521) Complex EM visit Add On G2211 Diagnoses Hair thinning L65.9 Vitamin D deficiency E55.9 Non-restorative sleep G47.8 BARNES (dyspnea on exertion) R06.09 CPT Codes EKG - CPT: 82935-Ciqwuugcrrrkrwrmr, Complete ([id number]) Additional Codes WILMER-7 Assessment Billing - WILMER-7 Assessment Tool: WILMER-7 Assessment 61529 ([id number]) PHQ-9 - 98491 - PHQ-9 Billing: Yes ([id number]) Assessment & Plan Assessment & Plan (1) Hair thinning: Code(s): L65.9 - Nonscarring hair loss, unspecified Category: Medical Plan: Patient evaluated by Dermatology. Treating with minoxidil every other day. She notices some improvement in hair fall out at this point. Vitamin-D deficiency is corrected, but it may be 3-6 months before she notices impact on her hair thinning. (2) Vitamin D deficiency: Code(s): E55.9 - Vitamin D deficiency, unspecified Category: Medical Plan: Patient will take vitamin D3 1000 IU daily moving forward at this time. (3) Non-restorative sleep: Code(s): G47.8 - Other sleep disorders Category: Medical Plan: She will reschedule the sleep study. (4) BARNES (dyspnea on exertion): Code(s): R06.09 - Other forms of dyspnea Category: Medical Plan: Normal EKG today. Ordered echo, stress test, PFT and chest x-ray. Trial of Claritin 10 mg daily with albuterol 2 puffs every 4 hours as needed for coughing, wheezing or shortness of breath. Use this 15 minutes prior to vigorous activity. Plan Re-evaluate in 6 weeks. Orders: Orders XR chest 2V Today R06.09 - Other forms of dyspnea PFT pulmonary function test Today R06.09 - Other forms of dyspnea AMB EKG-In Office Today R06.09 - Other forms of dyspnea CA echo transthoracic complete Today R06.09 - Other forms of dyspnea CA stress test Today E55.9 - Vitamin D deficiency, unspecified, G47.8 - Other sleep disorders, L65.9 - Nonscarring hair loss, unspecified, R06.09 - Other forms of dyspnea Medications: New loratadine (Claritin) 10 mg PO DAILY 90 tabs 0RF albuterol sulfate 90 mcg/actuation (Ventolin HFA) 2 puffs inhalation Q4-6H PRN 8.5 grams 0RF shortness of breath or wheezing or coughing
[2024-08-28 15:20] VITALS: BP 100/58; PULSE 82; RESP 15; TEMP 36.6; O2SAT 98; BMI 22.9
== END 2024-08-28 15:57 | disposition home or self-care (01) ==
LOC: HO.HMCFM 15:11
PROVIDERS: PCP Physician Assistant Medical; Visit Provider Physician Assistant Medical
DX: L65.9 Nonscarring hair loss, unspecified (principal); E55.9 Vitamin D deficiency, unspecified; G47.8 Other sleep disorders; R06.09 Other forms of dyspnea

== ENCOUNTER → 2024-08-28 15:10 | Outpatient (BNVA) | payer OTHER, SELFPAY | PROVIDERS: PCP Physician Assistant Medical; Visit Provider Physician Assistant Medical | DX: L65.9 Nonscarring hair loss, unspecified (principal); E55.9 Vitamin D deficiency, unspecified; G47.8 Other sleep disorders; R06.09 Other forms of dyspnea | CPT/HCPCS: 93005; 96127; 99212 ==

== ENCOUNTER → 2024-09-21 14:02 | Outpatient (REF) | payer OTHER, SELFPAY ==
--- NOTE | ~2024-09-21 | XR_ITS ---
EXAMINATION: XR CHEST CLINICAL INFORMATION: R06.09 - Other forms of dyspnea COMPARISON: None available. TECHNIQUE: 2 views of the chest were obtained. FINDINGS: No consolidation, pleural effusion or pneumothorax. No hyperinflation. Cardiomediastinal silhouette size is normal. Osseous structures are intact. XR/XR chest 2V IMPRESSION: No acute airspace disease. Normal x-ray. Electronically signed by: Mark Reardon MD 09/21/2024 03:40 PM EDT
--- NOTE | 2024-09-21 14:05 | CA_ITS ---
Transthoracic Echocardiogram Patient (Last, First, Middle): Feroz Jamil, Gender: Female Date of : 2005 Age: 18 Procedure Date: 09/21/2024 Procedure Type: Transthoracic Echocardiogram Location: OP Height: 165.1 cm Weight: 58.97 kg BSA: 1.65 m2 Heart Rate: bpm BP: 110 / 62 mmHg Shop Helper: TO Referring MD: Jonna RICHARDSON Tie Buyer: Aman Sweeney MD Symptoms: R06.09 - Other forms of dyspnea Study Quality: Adequate ECG Rhythm: Sinus Conclusions: - Normal study Findings Left Ventricle Normal left ventricular size, thickness, and systolic function. The visually estimated ejection fraction is between 65-70%. Spectral Doppler is indicative of a normal filling pattern. Right Ventricle Normal right ventricular cavity size and systolic function. Atria Both atria are normal in size. There is no evidence of interatrial shunt. Aortic Valve Normal aortic valve structure and function. There is no aortic valve stenosis. There is no aortic valve regurgitation. Mitral Valve Normal mitral valve structure and function. There is no mitral valve regurgitation. There is no mitral valve stenosis. Pulmonic Valve The pulmonic valve is likely normal. Tricuspid Valve Normal tricuspid valve structure. Tricuspid regurgitation envelope is inadequate for calculation of right ventricular systolic pressure. Normal right atrial pressure. Great Vessels All visible segments of the aorta are normal in size. The visualized portions of the pulmonary artery and branches are normal. Venous The inferior vena cava is normal in size and collapses greater than 50% with inspiration. Pericardium/Pleural There is no evidence of pericardial effusion. Prior Study Comparison No prior study available for comparison. Measurements 2D Linear Measurements IVSd: 0.72 0.6-0.9/0.6-1.0 cm LVIDd: 4.37 3.9-5.3/4.2-5.9 cm LVIDd Index: 2.65 2.4-3.2/2.2-3.1 cm/m2 LVIDs: 2.95 2.0-3.6 cm LVPWd: 0.75 0.7-1.1 cm LA Diam: 3.40 2.7-3.8/3.0-4.0 cm LAIDs Index: 2.06 1.5-2.3 cm/m2 LV Mass: 119.40 67-162/88-224 g LV Mass Index: 72.36 43-95/49-115 g/m2 LVOT Diam: 2.00 3.0+(-)1.3 cm 2D Systolic Function EF 4C: 67.70 >55% EF 2C: 69.20 >55% EF BiP: 68.70 >55% Mitral Valve MV Pk E: 0.82 MV PK A: 0.37 MV Decel Time: 201.00 E/A: 2.20 E'Lateral: 12.40 E'Medial: 10.10 E/E' Med: 8.10 E/E' Lat: 6.60 PHT: 59.00 MVA PHT: 3.73 Decel [place]: 4.09 Aortic Valve AoV Pk Karl: 1.48 AoV Mn Karl: 0.93 AoV VTI: 0.32 AoV Pk Grad: 9.00 Aov Mn Grad: 4.00 REJI Cont.VTI: 2.16 LVOT LVOT Pk Karl: 1.11 LVOT Mn Karl: 0.74 LVOT VTI: 0.22 LVOT Pk Grad: 5.00 LVOT Mn Grad: 3.00 LVOT Diam: 2.00 LVOT Area: 3.14 Diastolic Function MV Pk E: 0.82 MV Pk A: 0.37 E/A: 2.20 E'Medial: 10.10 E/E' Med: 8.10 E' Laterial: 12.40 E/E' Lat: 6.60 Right Ventricle TAPSE (mm): 20.40 TVS' Karl: 11.90 Tricuspid Valve RA Press: 3.00 Great Vessels Aorta Sinus of Valsalva: 2.82 2.0-3.5 cm Ao Asc: 2.40 2.1-3.4 cm Ao Arch: 2.30 Updated in Other Vendor System with Status of Final Aman Sweeney MD electronically signed on 09/21/2024 4:51:27 PM with status of Final
--- OUTSIDE RECORDS SUMMARY | 2024-09-21 16:33 | XMS_ITS | Clinical Summary ---
Author Organization [facility] Address [address] [place] [address] Phone Care Team Providers Care Booth Operator Name Role Phone Unavailable Primary Care Provider [...] complete this topic Procedures * Due to [facility] law, this organization might not be sharing sensitive test results. Procedure Name Priority Date/Time Associated Diagnosis Comments CHLAMYDIA AND GONORRHEA, AMPLIFIED Routine 12/12/2021 12:55 PM EDT Encounter for screening examination for sexually transmitted disease from Last 3 Months or Most Recently Relevant to Health Maintenance Results * Due to [place] [employer] law, this organization might not be sharing sensitive test results. * Chlamydia and Gonorrhoea, Amplified (12/12/2021 12:55 PM EDT) Chlamydia Trachomatis, DNA Probe NEGATIVE (NEG) [facility] Comment: No Chlamydia Trachomatis RNA detected in this patient's sample ? (REFERENCE RANGE/NORMAL VALUE: NOT DETECTED) ? Note: This test uses clay molder- mediated amplification method to detect rRNA from C. Trachomatis URINE GC AMP PROBE NEGATIVE (NEG) [facility] Comment: No Neisseria Gonorrhoeae RNA detected in this patient's sample ? (REFERENCE RANGE/NORMAL VALUE: NOT DETECTED) ? NOTE: This test uses clay molder-mediated amplification method to detect rRNA from N.Gonorrhoeae. [...] without risk of sexual abuse. Consult the [facility] if needed. Contact phone number . Therapeutic failure or success cannot be determined with the Aptima Combo2 assay since nucleic acid may persist following appropriate antimicrobial therapy. The Centers for Disease Control and Prevention (CDC) recommends confirmatory retesting using culture or a different nucleic acid amplification test when positive results occur, if indicated. Testing performed or reported by [facility], a Service of [facility], [address] [place] [address] [place] [address] George Mistry MD, Supervisor Decorating [facility]# [id number] Urine (Urine) 12/12/2021 12: 55 PM EDT 12/12/2021 2:35 PM EDT us Harriet Munson MD LAB MICROBIOLOGY - GENERAL ORD ERABLES Final Result [facility] from Last 3 Months or Most Recently Relevant to Health Maintenance Insurance NON PCC [facility] ACO NON PCC
== END ==
LOC: HO.CARD 14:02
PROVIDERS: PCP Physician Assistant Medical; Visit Provider Physician Assistant Medical
DX: R06.09 Other forms of dyspnea (principal)
CPT/HCPCS: 71046; 93306

== ENCOUNTER → 2024-09-21 14:05 | Outpatient (BNV) | payer OTHER, SELFPAY | PROVIDERS: PCP Physician Assistant Medical; Visit Provider Internal Medicine Cardiovascular Disease | DX: R06.09 Other forms of dyspnea (principal) | CPT/HCPCS: 93306 ==

== ENCOUNTER → 2024-09-21 14:50 | Outpatient (BNV) | payer OTHER, SELFPAY | PROVIDERS: PCP Physician Assistant Medical; Visit Provider Radiology Diagnostic Radiology | DX: R06.09 Other forms of dyspnea (principal) | CPT/HCPCS: 71046 ==

== ENCOUNTER 2024-10-04 13:09 | Outpatient (REF) | payer OTHER, SELFPAY ==
--- OUTSIDE RECORDS SUMMARY | 2024-10-04 15:22 | XMS_ITS | Clinical Summary ---
Author Organization [facility] Address [address] [place] [address] Phone Care Team Providers Care Manager Port Name Role Phone Unavailable Primary Care Provider [...] complete this topic Procedures * Due to [facility] law, this organization might not be sharing sensitive test results. Procedure Name Priority Date/Time Associated Diagnosis Comments CHLAMYDIA AND GONORRHEA, AMPLIFIED Routine 12/12/2021 12:55 PM EDT Encounter for screening examination for sexually transmitted disease from Last 3 Months or Most Recently Relevant to Health Maintenance Results * Due to [place] [employer] law, this organization might not be sharing sensitive test results. * Chlamydia and Gonorrhoea, Amplified (12/12/2021 12:55 PM EDT) Chlamydia Trachomatis, DNA Probe NEGATIVE (NEG) [facility] Comment: No Chlamydia Trachomatis RNA detected in this patient's sample (REFERENCE RANGE/NORMAL VALUE: NOT DETECTED) Note: This test uses design and sales consultant- mediated amplification method to detect rRNA from C. Trachomatis URINE GC AMP PROBE NEGATIVE (NEG) [facility] Comment: No Neisseria Gonorrhoeae RNA detected in this patient's sample (REFERENCE RANGE/NORMAL VALUE: NOT DETECTED) NOTE: This test uses design and sales consultant-mediated amplification method to detect rRNA from N.Gonorrhoeae. [...] without risk of sexual abuse. Consult the [facility] if needed. Contact phone number . Therapeutic failure or success cannot be determined with the Aptima Combo2 assay since nucleic acid may persist following appropriate antimicrobial therapy. The Centers for Disease Control and Prevention (CDC) recommends confirmatory retesting using culture or a different nucleic acid amplification test when positive results occur, if indicated. Testing performed or reported by [facility], a Service of [facility], [address] [place] [address] George Mistry MD, Umbrella Supervisor [facility]# [id number] Urine (Urine) 12/12/2021 12: 55 PM EDT 12/12/2021 2:35 PM EDT us Harriet Munson MD LAB MICROBIOLOGY - GENERAL ORD ERABLES Final Result [facility] from Last 3 Months or Most Recently Relevant to Health Maintenance Insurance NON [facility] ACO NON PCC
[2024-10-04 18:09] LABS: MANUAL DIFF FLAG NO
[2024-10-04 18:37] LABS: Anion Gap 12 (12-20); Blood Urea Nitrogen 10 mg/dL (9-16); Calcium 9.3 mg/dL (8.4-10.2); Carbon Dioxide 23 mmol/L (22-29); Chloride 107 mmol/L (96-108); Estimated Glomerular Filt Rate > 60; Glucose Random 80 mg/dL (60-115); Potassium 3.7 mmol/L (3.3-5.1); Sodium 138 mmol/L (135-145)
[2024-10-04 18:40] LABS: Basophils Percent Auto 0.3 % (0-2); Eosinophils Absolute Auto 0.1 X10*3/uL (0.0-0.4); Eosinophils Percent Auto 0.8 % (0-4); Hematocrit 34.1 % (37.0-47.0); Hemoglobin 11.2 g/dl (12.0-16.0); Imm Gran Abs Auto 0.02 X10*3/uL (0.00-0.03); Imm Gran Pct Auto 0.3 % (0.0-0.4); Lymphocytes Absolute Auto 2.1 X10*3/uL (1.2-4.9); Lymphocytes Percent Auto 32.7 % (20-40); Mean Corpuscular HGB Conc 32.8 g/dl (31.0-35.0); Mean Corpuscular Volume 82.2 fL (80.0-98.0); Mean Platelet Volume 12.2 fL (9.4-12.3); Monocytes Absolute Auto 0.4 X10*3/uL (0.1-1.2); Monocytes Percent Auto 5.6 % (2-11); Neutrophils Absolute Auto 3.8 x10*3/uL (2.0-8.3); Neutrophils Percent Auto 60.3 % (45-73); Platelet Count 225 X10*3/uL (160-400); Red Blood Count 4.15 X10*6/uL (4.20-5.50); Red Cell Distribution Width 12.5 % (11.0-16.0); White Blood Count 6.3 X10*3/uL (4.8-10.8)
[2024-10-04 18:52] LABS: Vitamin B12 294 pg/mL (200-900)
[2024-10-04 18:58] LABS: TSH reflex Free T4 1.16 uIU/mL (0.32-4.0)
[2024-10-08 15:08] LABS: Vitamin D 25-OH, D2 <4 ng/mL; Vitamin D 25-OH, D3 33 ng/mL; Vitamin D 25-OH, Total 33 ng/mL (30-100)
[2024-10-08 16:38] LABS: Vitamin A 44 mcg/dL (26-72)
[2024-10-09 08:44] LABS: Anti Nuclear Antibody Screen POSITIVE (NEGATIVE); Anti Nuclear Antibody Titer 1:40 titer
== END 2024-10-04 13:10 | disposition home or self-care (01) ==
LOC: HO.WFDLDS 13:09
PROVIDERS: Visit Provider Physician Assistant Medical
DX: L65.9 Nonscarring hair loss, unspecified (principal); E55.9 Vitamin D deficiency, unspecified; Z91.89 Other specified personal risk factors, not elsewhere classified; M85.80 Other specified disorders of bone density and structure, unspecified site
CPT/HCPCS: 36415; 80048; 82306; 82607; 84443; 84590; 84591; 85025; 86038; 86039

== ENCOUNTER 2024-10-12 15:02 | Outpatient (AMB) | payer OTHER, SELFPAY ==
--- OUTSIDE RECORDS SUMMARY | 2024-10-12 15:05 | XMS_ITS | Clinical Summary ---
Author Organization [facility] Address [address] [place] [address] Phone Care Team Providers Care Packing Tractor Machine Operator Name Role Phone Unavailable Primary Care [...] Vaccine (1 of 2 - Standard) 2020 Influenza Vaccines (#1) 2024 12/11/19, 12/12/2021, 04/25/2020, Additional history exists DTaP,Tdap,and Td Vaccines (7 - Td or [...] Completed 12/11/2023, 05/2021, 05/15/2021, Additional history exists Pneumococcal Vaccine Aged Out No long er eligible based on patient's age to complete this topic Procedures * Due to [facility] law, this organization might not be sharing sensitive test results. Procedure Name Priority Date/Time Associated Diagnosis Comments CHLAMYDIA AND GONORRHEA, AMPLIFIED Routine 12/12/2021 12:55 PM EDT Encounter for screening examination for sexually transmitted disease from Last 3 Months or Most Recently Relevant to Health Maintenance Results * Due to [place] [employer] law, this organization might not be sharing sensitive test results. * Chlamydia and Gonorrhoea, Amplified (12/12/2021 12:55 PM EDT) Chlamydia Trachomatis, DNA Probe NEGATIVE (NEG) [facility] Comment: No Chlamydia Trachomatis RNA detected in this patient's sample (REFERENCE RANGE/NORMAL VALUE: NOT DETECTED) Note: This test uses hot blaster- mediated amplification method to detect rRNA from C. Trachomatis URINE GC AMP PROBE NEGATIVE (NEG) [facility] Comment: No Neisseria Gonorrhoeae RNA detected in this patient's sample (REFERENCE RANGE/NORMAL VALUE: NOT DETECTED) NOTE: This test uses hot blaster-mediated amplification method to detect rRNA from N.Gonorrhoeae. [...] without risk of sexual abuse. Consult the [facility] if [...] if indicated. Testing performed or reported by [facility], a Service of [facility], [address] [place] [address] George Mistry MD, Watch And Clock Maker And Repairer [facility]# [id number] Urine (Urine) 12/12/2021 12: 55 PM EDT 12/12/2021 2:35 PM EDT us Harriet Munson MD LAB MICROBIOLOGY - GENERAL ORD ERABLES Final Result [facility] from Last 3 Months or Most Recently Relevant to Health Maintenance [place] [address] [address] NON PCC [facility] ACO [facility] NON PCC
--- NOTE | 2024-10-12 15:08 | MHC.PC.OV ---
Vital Signs 10/12/24 15:11 Height 5 ft 5 in Weight 142 lb BMI 23.6 BP 102/64 Blood Pressure Location Lt brachial Position Sitting Respiration 15 Pulse 67 Pulse Source Pulse Oximeter Temp 97.8 F Temp Source Temporal Artery Scan Pulse Oximetry (%) 98 Oxygen Delivery Method Room Air Intake Visit Reasons: BARNES follow up Intake Note: Feroz presents in the office today for a follow up. Allergies No Known Allergies Allergy (Verified 10/12/24 15:10) Tobacco use date assessed: 10/12/24 Dental Screening Dental Screen Date: 10/12/24 Did you have a dental visit in the last 12 months?: Yes Did you have a dental problem in the last 6 months where you did not have access to dental care?: No Was dental information given to patient?: Patient has dentist HPI HPI Comments History of Present Illness Details This is a 18-year-old female with a past medical history of migraines and vitamin-D deficiency presenting for follow up. Patient presented with concern of hair thinning. Lab evaluation demonstrated vitamin-D deficiency with a level of 8 on 06/01/2024. She was treated with vitamin D3 88926 IU weekly. Vitamin-D level normalized 08/21/2024 at 56. She was referred to Dermatology for hair thinning. They are treating with Minoxidil topically every other day. She sent a message about worsening hair thinning. B12 level is low normal. Started on b12 1000 mcg daily. Vitamin d 33. Taking 1000 iu vitamin d3 daily. YUE positive. Endorses fatigue and intermittent white discoloration of the fingers without pattern of cold exposure. Patient also reported non restorative sleep, daytime fatigue and snoring. Sleep study scheduled next month. She still gets migraines. Patient reported shortness of breath with exertion over the past 3 months at her last visit. Her mother has asthma, and her father has allergies. Patient has nasal discharge and irritation sometimes. There is no family history of cardiovascular disease. Denies history of asthma. Denies chest pain. Denies palpitations, edema, cough, wheezing. Started Claritin 10 mg daily and SOB significantly reduced. Has not needed to try inhaler. Stress and PFT scheduled. Echo and CXR negative. ROS: Constitutional: No unexplained weight loss, fever, chills or night sweats. Eyes: No vision changes, blurry vision, double vision, eye pain, eye redness, eye discharge. ENT: No hearing loss, ear pain, sinus pain, sore throat. + sometimes nasal itching and irritation Respiratory: No cough, wheezing, sputum production or hemoptysis. +BARNES Cardiovascular: No chest pain, chest pressure or chest discomfort. No palpitations or pedal edema. Neurologic: No dizziness, syncope, unilateral weakness, ataxia, numbness or tingling in the extremities. Hematologic/Lymphatics: No bleeding or bruising. MSK: denies joint pian or swelling Endocrine: No cold or heat intolerance. No polyuria or polydipsia. Psychiatric: No depression or anxiety. No SI/HI. Physical exam: Constitutional: Alert, in no distress. Eyes: Pupils are equal, round and reactive to light. Extraocular muscles intact. Ear, Nose and Throat: Canals clear. TMs normal. Normal nasal mucosa. No nasal discharge. No oral lesions. Neck: Supple, Full range of motion. No lymphadenopathy. No palpable thyroid masses. Respiratory: Clear to auscultation. Cardiovascular: S1 S2 regular. No murmurs. No carotid bruits. Skin: No rashes Musculoskeletal: No gross deformities. Normal range of motion. Extremities: Warm and well perfused. No clubbing, cyanosis or edema. 3+ peripheral pulses bilaterally. Psychiatric: Normal mood and affect [facility] Medical History (Updated 10/12/24 @ 15:26 by DYLAN Talbot) Positive YUE (antinuclear antibody) Anxiety and depression BARNES (dyspnea on exertion) Migraines URI (upper respiratory infection) Snoring Non-restorative sleep Daytime somnolence Abnormal CBC Vitamin D deficiency Screening for cardiovascular condition Routine physical examination Hair thinning No pertinent past medical history Surgical History (Updated 06/01/24 @ 14:10 by Melia Flores MA) No pertinent past surgical history Family History Paternal Grandmother Diabetes Sister Asthma Social History (Updated 10/12/24 @ 15:11 by Katherine Castle MA) Household Members: Family Both parents involved: No Caregiver staying overnight: No Housing: House Are you a primary healthcare science specialist to a significant other at home: No Do you presently have visiting nurse or other home services: No 75 years or older and lives alone: No Alcohol intake: never Patient Tobacco Use Status: Never used Tobacco e-Cigarette/Vaping Use: Never Used Second Hand Smoke Exposure: No service: No Current occupational status: employed and student 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 Cognitive needs: No Hearing needs: No Vision needs: Yes (wear glasses) Questionnaire Thrive Questionnaire Date Thrive assessed: 06/01/24 I am a: Patient What is your living situation today?: I have a steady place to live Within the past 12 months, did the food you bought not last and you didn't have the money to get more?: Never true Within the past 12 months, did you worry whether your food would run out before you got money to buy more?: Never true Do you have trouble paying for medicines?: No Do you have trouble getting transportation to medical appointments?: No Do you have trouble paying your heating and electricity bill?: No Do you have trouble taking care of your child, family member or friend?: No Do you have trouble with day-to-day activities such as bathing, preparing meals, shopping, managing finances, etc.?: No Are you currently unemployed and looking for a job?: No Are you interested in more education?: I choose not to answer this question Please select the resources that you would like help with: None Currently or been in a relationship where the following occur: No concerns reported THRIVE Score: 0 WILMER-7 AMB Questionnaire WILMER-7 Date WILMER - 7 assessed: 08/28/24 Source: Developed by Drs. Navneet Do, Carlita Sanchez, Chago Reece and colleagues, with an educational winston from [employer]. Physical exam (Primary Care) Vital Signs: Last Vital Signs Temp 97.8 F 10/12/24 15:11 Pulse 67 10/12/24 15:11 Resp 15 10/12/24 15:11 BP 102/64 10/12/24 15:11 Pulse Ox 98 10/12/24 15:11 Oxygen Delivery Method Room Air 10/12/24 15:11 BMI result Body Mass Index 23.6 Tobacco/Smoking Status: Tobacco use Status Tobacco use date assessed 10/12/24 10/12/24 15:13 Patient Tobacco Use Status Never used Tobacco 10/12/24 15:13 e-Cigarette/Vaping Use Never Used 10/12/24 15:13 Thrive Assessment: Date of Thrive Assessment Date Thrive assessed 06/01/24 10/12/24 15:13 Currently or been in a relationship where the following occur: No concerns reported Coding Level of Care Code Est Pt Level 4 (65781) Complex EM visit Add On G2211 Diagnoses Hair thinning L65.9 Vitamin D deficiency E55.9 Non-restorative sleep G47.8 BARNES (dyspnea on exertion) R06.09 Positive YUE (antinuclear antibody) R76.8 Assessment & Plan Assessment & Plan (1) Hair thinning: Code(s): L65.9 - Nonscarring hair loss, unspecified Category: Medical (2) Vitamin D deficiency: Code(s): E55.9 - Vitamin D deficiency, unspecified Category: Medical (3) Non-restorative sleep: Code(s): G47.8 - Other sleep disorders Category: Medical Plan: She will reschedule the sleep study. (4) BARNES (dyspnea on exertion): Code(s): R06.09 - Other forms of dyspnea Category: Medical (5) Positive YUE (antinuclear antibody): Code(s): R76.8 - Other specified abnormal immunological findings in serum Category: Medical Plan Follow up with dermatology. Treated with Minoxidil. Increase d3 to 2000 iu daily. Continue b12 1000 mcg daily. Referred to Rheumatology for +YUE, fatigue, hair thinning and intermittnet pallor of the fingers (?Raynauds). Proceed with stress test, PFT and sleep study. Continue Claritin and use Albuterol as needed. Recheck labs 1 week prior to follow up in 10-12 weeks. Orders: Orders Vitamin B12 10 Weeks G43.909 - Migraine, unspecified, not intractable, without status migrainosus, Z91.89 - Other specified personal risk factors, not elsewhere classified Complete Blood Count Auto Diff 10 Weeks G43.909 - Migraine, unspecified, not intractable, without status migrainosus Vitamin D 25-OH (D2 and D3) 10 Weeks E55.9 - Vitamin D deficiency, unspecified, G43.909 - Migraine, unspecified, not intractable, without status migrainosus IRON PROFILE 10 Weeks D64.9 - Anemia, unspecified, G43.909 - Migraine, unspecified, not intractable, without status migrainosus Referrals Rheumatology Referral L65.9 - Nonscarring hair loss, unspecified, R76.8 - Other specified abnormal immunological findings in serum Medications: New cholecalciferol (vitamin D3) 50 mcg PO DAILY 90 caps 1RF Discontinued cholecalciferol (vitamin D3) Discontinued Reason: Doctor's Order 25 mcg PO DAILY 90 caps 1RF
[2024-10-12 15:11] VITALS: BP 102/64; PULSE 67; RESP 15; TEMP 36.6; O2SAT 98; BMI 23.6
== END 2024-10-12 15:31 | disposition home or self-care (01) ==
LOC: HO.HMCFM 15:03
PROVIDERS: PCP Physician Assistant Medical; Visit Provider Physician Assistant Medical
DX: L65.9 Nonscarring hair loss, unspecified (principal); E55.9 Vitamin D deficiency, unspecified; G47.8 Other sleep disorders; R06.09 Other forms of dyspnea; R76.8 Other specified abnormal immunological findings in serum

== ENCOUNTER → 2024-10-12 15:02 | Outpatient (BNVA) | payer OTHER, SELFPAY | PROVIDERS: PCP Physician Assistant Medical; Visit Provider Physician Assistant Medical | DX: L65.9 Nonscarring hair loss, unspecified (principal); E55.9 Vitamin D deficiency, unspecified; G47.8 Other sleep disorders; R06.09 Other forms of dyspnea; R76.8 Other specified abnormal immunological findings in serum; Z79.899 Other long term (current) drug therapy | CPT/HCPCS: 99212 ==

== ENCOUNTER 2024-11-16 13:07 | Outpatient (REF) | payer OTHER, MEDICAID, SELFPAY ==
--- NOTE | 2024-11-16 13:08 | PFT_ITS ---
Flows: FEV1: 110 % of predicted at 3.52 L FVC: 113 % of predicted at 4.08 L FEV1/FVC: 86 % Bronchodilator response: Absent Volumes: Total lung capacity: 99 % of predicted at 4.98 L Residual volume: 82 % of predicted at 0.89 L Slow vital capacity: 106 % of predicted at 4.08 L Expiratory reserve volume: 84 % of predicted at 1.08 L Diffusion capacity: Mildly decreased, corrects to normal after adjustment for alveolar ventilation. Impression: No obstructive or restrictive ventilatory defect. No bronchodilator response. MTDD
--- OUTSIDE RECORDS SUMMARY | 2024-11-16 13:10 | XMS_ITS | Clinical Summary ---
Author Organization [facility] Address [address] [place] [address] Phone Care Team Providers Care Email Specialist Name Role Phone Unavailable Primary Care Provider [...] Mass Index 23.64 12/12/2021 10:31 AM EDT Plan of Treatment Health Maintenance Due Date Last Done Comments Men B Vaccine (1 of 2 - Standard) 2020 Influenza Vaccines (#1) 2024 12/11/19 24, 12/12/2021, 04/25/2020, Additional history exists DTaP,Tdap,and Td [...] complete this topic Procedures * Due to [facility] law, this organization might not be sharing sensitive test results. Procedure Name Priority Date/Time Associated Diagnosis Comments CHLAMYDIA AND GONORRHEA, AMPLIFIED Routine 12/12/2021 12:55 PM EDT Encounter for screening examination for sexually transmitted disease from Last 3 Months or Most Recently Relevant to Health Maintenance Results * Due to [place] [employer] law, this organization might not be sharing sensitive test results. * Chlamydia and Gonorrhoea, Amplified (12/12/2021 12:55 PM EDT) Chlamydia Trachomatis, DNA Probe NEGATIVE (NEG) [facility] Comment: No Chlamydia Trachomatis RNA detected in this patient's sample (REFERENCE RANGE/NORMAL VALUE: NOT DETECTED) Note: This test uses mathematical engineer- mediated amplification method to detect rRNA from C. Trachomatis URINE GC AMP PROBE NEGATIVE (NEG) [facility] Comment: No Neisseria Gonorrhoeae RNA detected in this patient's sample (REFERENCE RANGE/NORMAL VALUE: NOT DETECTED) NOTE: This test uses mathematical engineer-mediated amplification method to detect rRNA from [...] without risk of sexual abuse. Consult the [facility] if needed. Contact phone number . Therapeutic failure or success cannot be determined with the Aptima Combo2 assay since nucleic acid may persist following appropriate antimicrobial therapy. The Centers for Disease Control and Prevention (CDC) recommends confirmatory retesting using culture or a different nucleic acid amplification test when positive results occur, if indicated. Testing performed or reported by [facility], a Service of [facility], [address] [place] [address] George Mistry MD, Solar Energy Systems Designer [facility]# [id number] Urine (Urine) 12/12/2021 12: 55 PM EDT 12/12/2021 2:35 PM EDT Harriet Munson MD LAB MICROBIOLOGY - GENERAL ORD ERABLES Final Result [facility] from Last 3 Months or Most Recently Relevant to Health Maintenance [place] [place] [address] NON PCC [facility] ACO NON PCC
[2024-11-16 13:43] VITALS: PULSE 73; O2SAT 99
== END 2024-11-16 13:08 | disposition home or self-care (01) ==
LOC: HO.RESP 13:07
PROVIDERS: PCP Physician Assistant Medical; Visit Provider Physician Assistant Medical
DX: R06.09 Other forms of dyspnea (principal)
CPT/HCPCS: 94010; 94640; 94727; 94729

== ENCOUNTER → 2024-11-16 13:08 | Outpatient (BNV) | payer OTHER, MEDICAID, SELFPAY | PROVIDERS: PCP Physician Assistant Medical; Visit Provider Internal Medicine Pulmonary Disease | DX: R06.00 Dyspnea, unspecified (principal) | CPT/HCPCS: 94060; 94727; 94729 ==